=== PATIENT | male | born 1950 | race Caucasian/White ===

== ENCOUNTER 2019-10-04 07:40 | Day surgery (SDC) | payer BC ==
[2019-10-01 12:01] VITALS: BMI 29.9
[2019-10-04] MEDS ORDERED: PROPOFOL 20 ML ONE ×2 (07:53)
[2019-10-04] MEDS ORDERED: LIDOCAINE HCL/PF 2% SDV 5ML VIAL ONE (07:53)
[2019-10-04 08:26] VITALS: PULSE 50
[2019-10-04 09:51] VITALS: BP 155/60; TEMP 98
== END 2019-10-04 09:53 | disposition home or self-care (01) ==
LOC: FASU-ENDO 07:40
PROVIDERS: ATTEND Internal Medicine Gastroenterology
PROC: 0DJD8ZZ Inspection of Lower Intestinal Tract, Via Natural or Artificial Opening Endoscopic (ICD-10-PCS; principal; 2019-10-04 08:30)
DX: Z12.11 Encounter for screening for malignant neoplasm of colon (principal); K57.30 Diverticulosis of large intestine without perforation or abscess without bleeding

== ENCOUNTER 2022-08-10 17:25 | Emergency (ER) | payer BC ==
[2022-08-10 17:31] VITALS: TEMP 98.1; BMI 28.8
[2022-08-10] MEDS ORDERED: ACETAMINOPHEN 1000 MG/100 ML BAG IVPB ONE (19:49)
[2022-08-10] MEDS ORDERED: SODIUM CHLORIDE 1,000 ML IV STA (19:49)
[2022-08-10 20:37] LABS: BASO % 0.4 % (0-2.0); EOS % 0.2 % (0-4.5); HEMATOCRIT 41.9 % (35.4-49); HEMOGLOBIN 14.1 GM/dL (11.7-16.9); LYMPH % 9.7 % (8-40); MCH 31.7 pg (25.7-33.7); MCHC 33.7 g/dl (32.0-35.9); MEAN CELL VOLUME 93.9 fl (80-96); MONO % 6.2 % (3.8-10.2); NEUT % 83.5 % (42.8-82.8); PLATELET COUNT 223 10^3/uL (134-434); RBC 4.46 M/mm3 (4.00-5.60); RDW 14.4 % (11.9-15.9); WHITE BLOOD COUNT 9.9 K/mm3 (4.0-10.0)
[2022-08-10 20:47] LABS: INR 1.07 (0.83-1.09); PROTHROMBIN TIME (PATIENT) 12.3 SEC (9.7-13.0)
[2022-08-10 21:02] LABS: ALBUMIN 3.7 g/dl (3.4-5.0); BLOOD UREA NITROGEN 31.2 mg/dL (7-18); CALCIUM 9.5 mg/dL (8.5-10.1)
[2022-08-10 21:05] LABS: CREATININE 1.5 mg/dL (0.55-1.3)
[2022-08-10 21:07] LABS: BILIRUBIN,TOTAL 0.5 mg/dL (0.2-1)
[2022-08-11 00:26] LABS: EPI CELLS 5 /uL (0-25.1); HYALINE CASTS 0 /uL (0-3.1); URINE APPEARANCE CLEAR; URINE BACTERIA 0 /uL (0-1359); URINE BILIRUBIN NEGATIVE (NEGATIVE); URINE COLOR YELLOW; URINE GLUCOSE (UA) NEGATIVE (NEGATIVE); URINE KETONE NEGATIVE (NEGATIVE); URINE LEUK ESTERASE NEGATIVE (NEGATIVE); URINE NITRITE NEGATIVE (NEGATIVE); URINE PROTEIN 2+ (NEGATIVE); URINE RBC 11 /uL (0-23.9); URINE UROBILINOGEN 0.2 mg/dL (0.2-1.0); URINE WBC 4 /uL (0-25.8)
[2022-08-11] MEDS ORDERED: RAMIPRIL 5 MG CAPSULE PO ONE (00:28)
[2022-08-11] MEDS ORDERED: RAMIPRIL 5 MG CAPSULE ONE (00:34)
[2022-08-11 01:09] VITALS: BP 165/62; PULSE 55; RESP 18
[2022-08-11] MEDS ORDERED: LACTULOSE 20 GM/30 ML UDC (FOR ORAL USE ONLY) PO ONE (01:44)
[2022-08-11] MEDS ORDERED: POLYETHYLENE GLYCOL (HEALTHYLAX) 3350 17 GM PACKET PO SCH (01:45)
[2022-08-11] MEDS ORDERED: POLYETHYLENE GLYCOL (HEALTHYLAX) 3350 17 GM PACKET PO ONE (01:45)
[2022-08-11] MEDS ORDERED: LACTULOSE 20 GM/30 ML UDC (FOR ORAL USE ONLY) ONE (01:49)
[2022-08-11] MEDS ORDERED: TAMSULOSIN HCL 0.4 MG CAP PO ONE (02:53)
[2022-08-11] MEDS ORDERED: TAMSULOSIN HCL 0.4 MG CAP ONE (03:05)
== END 2022-08-11 05:17 | disposition home or self-care (01) ==
LOC: JER 17:25
PROC: 3E0333Z Introduction of Anti-inflammatory into Peripheral Vein, Percutaneous Approach (ICD-10-PCS; principal; 2022-08-10)
PROC: 3E0337Z Introduction of Electrolytic and Water Balance Substance into Peripheral Vein, Percutaneous Approach (ICD-10-PCS; 2022-08-10)
DX: N40.1 Benign prostatic hyperplasia with lower urinary tract symptoms (principal); I77.4 Celiac artery compression syndrome
CPT/HCPCS: 36415; 74176-TC; 80053; 81003; 83690; 85025; 85610; 87086; 99284-25